=== PATIENT | female | born 1955 | race Native Hawaiian/Other Pacific Islander ===

== ENCOUNTER 2020-09-15 11:32 | Emergency (ER) | payer OTHER ==
[~2020-09-15] VITALS: Ht 160 cm; Wt 66.0 kg
[2020-09-15 11:40] VITALS: TEMP 98
[2020-09-15] MEDS ORDERED: ASPIRIN 81 LOW81 MG PO (11:57)
[2020-09-15] MEDS ORDERED: LORA0.5T17 PO (11:58)
[2020-09-15 16:25] VITALS: BP 128/76
== END 2020-09-15 16:25 | disposition home or self-care (01) ==
LOC: ED 11:32
DX: N63.20 Unspecified lump in the left breast, unspecified quadrant (principal); Z98.82 Breast implant status
CPT/HCPCS: 99282

== ENCOUNTER 2021-04-23 13:08 | Outpatient (CLI) | payer OTHER ==
[~2021-04-23 13:08] MED LIST: ASPIRIN 81 LOW81 MG PO; LORA0.5T17 PO
== END 2021-04-23 23:13 | disposition home or self-care (01) ==
LOC: MAMMO 13:08
PROVIDERS: ATTEND Plastic Surgery
DX: R92.8 Other abnormal and inconclusive findings on diagnostic imaging of breast (principal)
CPT/HCPCS: G0279

== ENCOUNTER 2023-05-02 12:52 | Outpatient (CLI) | payer OTHER | END 2023-05-02 20:52 | disposition home or self-care (01) | LOC: MAMMO 12:52 | PROVIDERS: ATTEND Obstetrics & Gynecology | DX: Z12.31 Encounter for screening mammogram for malignant neoplasm of breast (principal) ==